=== PATIENT | male | born 1985 | race Caucasian/White ===

== ENCOUNTER 2016-11-11 20:33 | Emergency (ER) | payer SELFPAY ==
--- NOTE | ~2016-11-11 | ER ---
PATIENT'S NAME: HEATHER NOLEN [facility] AGE: 31 Y [address] ROOM: [place] [id number] LOCATION: [facility] ADMIT DATE: 11/11/2016 ER/Outpatient Report DISCHARGE DATE: 11/12/2016 FAMILY PHYSICIAN: PHYSICIAN, NO ATTENDING PHYSICIAN: George Hanks Admission date and time documented in the medical record. I saw the patient at 2150 hours. CHIEF COMPLAINT: Anxiety, depression, acute alcohol intoxication. HISTORY OF PRESENT ILLNESS: This patient is a 31-year-old male who is known to have a significant history of psychiatric problems. The patient is known to be bipolar having depression and anxiety. He also is known to have ADD, past suicidal ideations, and suicide attempt. The patient is a product of a alcohol syndrome. The patient does work in a brewery, drinks alcohol daily, heavy use of marijuana and tobacco. The patient denied being suicidal to the nurse and to me. The patient did admit to suicidal ideations with [facility] therapist evaluation. The patient denied any head pain; eyes, ears, nose, throat, neck, spine, chest, abdomen, or extremity pain. No shortness of breath. No nausea, vomiting, diarrhea, or incontinence of stool or urine. No skin eruptions or rash. No recent coughs, colds, flus, fever, chills, or sweats. No fall or trauma. No syncope or near syncope. No history of neuro problems or endocrine problems. Again, has bipolar disorder with depression, anxiety, ADD. The patient drank alcohol quite heavily today from beer to hard liquor. Took his regular medications that he normally takes for his psychiatric problems. Did not overdose on these or take any additional medications. He was kind of worried that with his high alcohol use today he did not know if the medications he takes normally is going to cause him problems. He did drive all the way from [place], [place] here by himself and ended up here in the emergency department for evaluation. HOME MEDICATIONS: See attached medication list. ALLERGIES: SHELLFISH. SOCIAL HISTORY: The patient smokes a half a pack of cigarettes a day. Does use marijuana on a fairly regular basis. Uses alcohol on a regular basis. SIGNIFICANT PAST MEDICAL HISTORY: PATIENT'S NAME: HEATHER NOLEN [facility] AGE: 31 Y [address] ROOM: [place] [id number] LOCATION: ED ADMIT DATE: 11/11/2016 ER/Outpatient Report DISCHARGE DATE: 11/12/2016 FAMILY PHYSICIAN: PHYSICIAN, NO ATTENDING PHYSICIAN: George Hanks Product of a alcohol syndrome. His parents were both alcoholics. Anxiety; depression; bipolar disorder; ADD; prior suicidal ideations and attempts; tobacco, marijuana, alcohol abuse. OPERATIONS: None. REVIEW OF SYSTEMS: All systems reviewed by me are negative with exception of those discussed in the history of the present illness. PHYSICAL EXAMINATION: VITAL SIGNS: Temperature 98.1, pulse 123, respirations 28, O2 sat on room air is 95%, blood pressure 159/94. HEAD: Normocephalic. No abrasion, contusion, laceration, swelling of the scalp or face. EYES: Extraocular muscles intact. PERRL. EARS, NOSE, THROAT: Clear. Mucous membranes moist. Breath smells of alcoholic beverage. NECK: No nuchal rigidity. No thyromegaly or cervical adenopathy. SPINE: Negative. LUNGS: Clear. HEART: Regular. ABDOMEN: Soft, nontender. Good bowel tones. No organomegaly or abnormal mass palpable. No CVA tenderness. EXTREMITIES: Intact. NEURO: Vascular intact. SKIN: Clear. No skin eruptions or rash. PSYCH: The patient denies being suicidal to me and to the nurse, but admitted to suicidal ideations to the [facility], therapist. IMPRESSION: 1. Suicidal ideation. 2. Acute alcohol intoxication and alcohol abuse. 3. History of bipolar disorder with depression and anxiety. 4. Attention deficit disorder. 5. Tobacco abuse. 6. Marijuana abuse. PLAN: Again, I did have the [facility] therapist come and interview the patient. The patient will be a direct admit to [facility] for inpatient therapy because of his suicidal ideation. PATIENT'S NAME: HEATHER NOLEN [facility] AGE: 31 Y [address] ROOM: [place] [id number] LOCATION: ED ADMIT DATE: 11/11/2016 ER/Outpatient Report DISCHARGE DATE: 11/12/2016 FAMILY PHYSICIAN: PHYSICIAN, NO ATTENDING PHYSICIAN: George Hanks MD LYNDSEY DERAS/meseret /[id number] d: t: 11/12/16 0145, OUTPATIENT REPORT
[2016-11-11 22:32] LABS: BASOPHIL # 0.1 K/uL (0.0-0.2); BASOPHIL % 0.7 %; EOSINOPHIL # 0.1 K/uL (0.0-0.5); EOSINOPHIL % 1.3 %; HEMATOCRIT 49.3 % (37.0-53.0); HEMOGLOBIN 17.4 g/dL (12.0-17.0); IMMATURE GRANULOCYTE % 0.4 %; LYMPHOCYTE # 2.2 K/uL (0.8-4.0); LYMPHOCYTE % 19.8 %; MCH 31.2 pg (27.0-34.0); MCHC 35.3 gm/dL (32.0-36.5); MCV 88.5 fl (83.0-98.0); MONOCYTE # 1.1 K/uL (0.0-1.0); MONOCYTE % 10.3 %; MPV 9.3 fl (9.4-12.4); NEUTROPHIL # (ANC) 7.5 K/uL (1.4-9.0); NEUTROPHIL % 67.5 %; NRBC % 0 /100WBC (0-0.00); PLATELET COUNT 249 K/uL (150-450); RBC 5.57 M/uL (4.00-6.00); RDW-CV 11.8 % (11.9-14.6); WBC 11.1 K/uL (4.0-11.0)
[2016-11-11 22:35] LABS: BILIRUBIN URINE NEGATIVE (NEGATIVE); BLOOD URINE NEGATIVE /UL (NEGATIVE); COLOR URINE COLORLESS (YELLOW); GLUCOSE URINE NEGATIVE (NEGATIVE); KETONE URINE NEGATIVE (NEGATIVE); LEUKOCYTES URINE NEGATIVE /UL (NEGATIVE); NITRITE URINE NEGATIVE (NEGATIVE); PH URINE 6.5 (4.0-8.0); PROTEIN URINE NEGATIVE (NEGATIVE); SPEC GRAVITY URINE 1.005 (1.003-1.035); TURBIDITY URINE CLEAR (CLEAR); UROBILINOGEN URINE NORMAL (NORMAL)
[2016-11-11 22:44] LABS: INR - (THERAPEUTIC) 0.92 (0.92-1.07); PROTIME 9.6 SECONDS (9.8-11.4)
[2016-11-11 22:56] LABS: ALK PHOS 102 IU/L (33-138); ALT 78 IU/L (12-78); ANION GAP 13.5 (10.0-19.0); AST 38 IU/L (10-40); BLOOD UREA NITROGEN 9 mg/dL (6-24); CALCIUM 8.8 mg/dL (8.5-10.5); CHLORIDE 107 mMol/L (96-110); CO2 24 mMol/L (22-32); CPK 254 IU/L (35-332); CREATININE 0.8 mg/dL (0.6-1.3); POTASSIUM 3.5 mMol/L (3.7-5.1); SODIUM 141 mMol/L (135-145); TOTAL BILIRUBIN 0.4 mg/dL (0.0-1.5); TOTAL PROTEIN 8.8 g/dL (6.0-8.4)
[2016-11-11 23:01] LABS: AMPHETAMINE NEGATIVE (NEGATIVE); BARBITURATE NEGATIVE (NEGATIVE); COCAINE NEGATIVE (NEGATIVE); OPIATES NEGATIVE (NEGATIVE)
[2016-11-12] MEDS ORDERED: CYMBALTA60 MG PO (02:32)
[2016-11-12] MEDS ORDERED: LAMICTAL25 MG PO (02:37)
[2016-11-14] MEDS ORDERED: NICODERM / HABIT7 MG TRANS ×2 (17:02→17:31)
[2016-11-14] MEDS ORDERED: INDERAL20 MG PO ×2 (17:04→17:32)
[2016-11-14] MEDS ORDERED: VISTARIL50 MG PO ×2 (17:06→17:34)
[2016-11-14] MEDS ORDERED: CYMBALTA60 MG PO (17:14)
[2016-11-14] MEDS ORDERED: LAMICTAL25 MG PO (17:29)
== END 2016-11-12 00:12 | disposition disaster alternative care site (69) ==
LOC: GMED 20:33
PROVIDERS: Emergency Medicine
DX: F10.129 Alcohol abuse with intoxication, unspecified (principal); R45.851 Suicidal ideations; F41.9 Anxiety disorder, unspecified; F31.9 Bipolar disorder, unspecified; F12.10 Cannabis abuse, uncomplicated; F17.210 Nicotine dependence, cigarettes, uncomplicated; Z91.013 Allergy to seafood; Z79.899 Other long term (current) drug therapy; F98.8 Other specified behavioral and emotional disorders with onset usually occurring in childhood and adolescence; Q86.0 Fetal alcohol syndrome (dysmorphic)
CPT/HCPCS: G0480; J3411; J7030

== ENCOUNTER → 2016-11-12 | Outpatient (CLI) | payer SELFPAY ==
[~2016-11-12] MED LIST: CYMBALTA60 MG PO; INDERAL20 MG PO; LAMICTAL25 MG PO; NICODERM / HABIT7 MG TRANS; VISTARIL50 MG PO
== END | disposition disaster alternative care site (69) ==
LOC: GAMB 00:08
DX: T14.91 Suicide attempt (principal)